=== PATIENT | male | born 1945 | race Caucasian/White ===

== ENCOUNTER → 2020-10-26 | Outpatient (CLI) | payer MEDICARE ==
[~2020-10-26] MED LIST: ASCO100018 PO; CHOL10003 PO; FISH1CAP PO; MILK150C2 PO; MULT-449 PO; ROSU5TAB PO; TAMS-11 PO
[2020-10-26 10:56] LABS: MICROSCOPIC AUTO
== END | disposition home or self-care (01) ==
LOC: STAR 09:41
PROVIDERS: ATTEND Urology
DX: Z01.818 Encounter for other preprocedural examination (principal); C67.9 Malignant neoplasm of bladder, unspecified; I44.0 Atrioventricular block, first degree; R00.1 Bradycardia, unspecified; Z20.822 Contact with and (suspected) exposure to COVID-19
CPT/HCPCS: 81001; 87086; 93005; U0003; U0005